=== PATIENT | female | born 1975 | race Caucasian/White ===

== ENCOUNTER 2019-11-10 20:44 | Day surgery (SDC) | payer MEDICARE, OTHER ==
--- NOTE | 2019-11-10 21:03 | EDM.PDOC ---
ED HPI GENERAL MEDICAL PROBLEM - General Chief Complaint: General Stated Complaint: ANAL TOY IN ANUS Time Seen by Provider: 11/10/19 21:01 Source of Information: Reports: Patient History Limitations: Reports: No Limitations - History of Present Illness INITIAL COMMENTS - FREE TEXT/NARRATIVE: Patient is an unfortunate 44-year-old female who presents the emergency department today with complaint of sexual toy in her rectum. The patient reports that she had a 12 inch Jell-O in her rectum and it slipped past her rectum and she has been unable to get it out so she presented to the emergency department today for evaluation melena no abdominal pain, patient is anxious tearful crying but not secondary to pain Rectal Pain Score (Numeric/FACES): 8 - Related Data Allergies Allergy/AdvReac Type Severity Reaction Status Date / Time aspirin Allergy Severe Bleeding Verified 11/10/19 22:04 meperidine [From Demerol] Allergy Severe Seizure Verified 11/10/19 22:05 NSAIDS (Non-Steroidal Allergy Severe Bleeding Verified 11/10/19 22:04 Anti-Inflamma pregabalin [From Lyrica] Allergy Severe Bleeding Verified 11/10/19 22:05 ED ROS GENERAL - Review of Systems Review Of Systems: See Below Constitutional: Denies: Fever, Chills GI/Abdominal: Reports: Other (Foreign body) ED EXAM, GENERAL - Physical Exam Exam: See Below Exam Limited By: No Limitations General Appearance: Alert, WD/WN, Anxious, Moderate Distress Nose: Normal Inspection, Normal Mucosa, No Blood Throat/Mouth: Normal Inspection, Normal Lips, Normal Teeth, Normal Gums, Normal Oropharynx, Normal Voice, No Airway Compromise Head: Atraumatic, Normocephalic Neck: Normal Inspection, Supple, Non-Tender, Full Range of Motion Respiratory/Chest: No Respiratory Distress, Lungs Clear, Normal Breath Sounds, No Accessory Muscle Use, Chest Non-Tender Cardiovascular: Normal Peripheral Pulses, Regular Rate, Rhythm, No Edema, No Gallop, No JVD, No Murmur, No Rub GI/Abdominal: Normal Bowel Sounds, Soft, Non-Tender Rectal (Female) Exam: Other (Foreign body in the vault was unable to retrieve digitally) Extremities: Normal Inspection, Normal Range of Motion, Non-Tender, Normal Capillary Refill, No Pedal Edema Neurological: Alert Skin Exam: Warm, Dry Course - Vital Signs Text/Narrative:: attempted digital retrieval of foreign body without success Last Recorded V/S: Last Vital Signs Temp 98.6 F 11/10/19 20:54 Pulse 125 H 11/10/19 20:54 Resp 16 11/10/19 20:54 BP 150/115 H 11/10/19 20:54 Pulse Ox 96 11/10/19 20:54 - Orders/Labs/Meds Orders: Active Orders 24 hr Category Date Time Status Abdomen 2V AP Flat Upright [CR] Stat Exams 11/10/19 21:00 Taken Meds: Medications Discontinued Medications Generic Name Dose Route Start Last Admin Trade Name Freq PRN Reason Stop Dose Admin Morphine Sulfate 4 mg 11/10/19 21:18 Morphine IVPUSH 11/10/19 21:19 ONETIME ONE Morphine Sulfate 4 mg 11/10/19 21:31 11/10/19 21:33 Morphine IM 11/10/19 21:32 4 mg ONETIME ONE Administration Ondansetron HCl 4 mg 11/10/19 21:18 Zofran IVPUSH 11/10/19 21:19 ONETIME ONE Ondansetron HCl 4 mg 11/10/19 21:31 Zofran IVPUSH 11/10/19 21:32 ONETIME ONE Sodium Chloride 10 ml 11/10/19 21:18 Saline Flush FLUSH ASDIRECTED PRN Keep Vein Open - Re-Assessments/Exams Free Text/Narrative Re-Assessment/Exam: 11/10/19 21:[address] Trejo who will come in to the ER and evaluate the patient Departure - Departure Time of Disposition: 22:27 Disposition: Refer to Observation Clinical Impression: Rectal foreign body Qualifiers: Encounter type: initial encounter Qualified Code(s): T18.5XXA - Foreign body in anus and rectum, initial encounter - Discharge Information Referrals: PCP,Not In Area [Primary Care Provider] - Forms: ED Department Discharge Sepsis Event Note (ED) - Focused Exam Vital Signs: Vital Signs Temp Pulse Resp BP Pulse Ox 11/10/19 20:54 98.6 F 125 H 16 150/115 H 96 - My Orders Last 24 Hours: My Active Orders 11/10/19 21:00 Abdomen 2V AP Flat Upright [CR] Stat - Assessment/Plan Last 24 Hours: My Active Orders 11/10/19 21:00 Abdomen 2V AP Flat Upright [CR] Stat
[2019-11-10] MEDS ORDERED: Ondansetron 4 MG/2 ML SDV IVPUSH ONE ×3 (21:18→23:39)
[2019-11-10] MEDS ORDERED: Morphine 4 MG/ML Syringe IVPUSH ONE (21:18)
[2019-11-10] MEDS ORDERED: Sodium Chloride 0.9% 10 ML Syringe FLUSH PRN (21:18)
[2019-11-10] MEDS ORDERED: Morphine 4 MG/ML Syringe IM ONE (21:31)
--- NOTE | 2019-11-10 22:54 | PCM.HP.2 ---
H&P History of Present Illness - General Date of Service: 11/10/19 Admit Problem/Dx: Admission Diagnosis/Problem Admission Diagnosis/Problem Foreign body in anus and rectum Source of Information: Patient History Limitations: Reports: No Limitations - History of Present Illness Initial Comments - Free Text/Narative: The patient is a 44 y/o female who presents with a rectal foreign object. She was engaged in anal intercourse and had the object come off in her rectum. She did try to remove it at home, but this was not successful. She reports being in pain from the object. She has had some rectal bleeding from the object. In the ED, attempt was made to remove the object, but it could not be grasped by the ED provider. Rectal Pain Score (Numeric/FACES): 8 - Related Data Allergies/Adverse Reactions: Allergies Allergy/AdvReac Type Severity Reaction Status Date / Time aspirin Allergy Severe Bleeding Verified 11/10/19 22:04 meperidine [From Demerol] Allergy Severe Seizure Verified 11/10/19 22:05 NSAIDS (Non-Steroidal Allergy Severe Bleeding Verified 11/10/19 22:04 Anti-Inflamma pregabalin [From Lyrica] Allergy Severe Bleeding Verified 11/10/19 22:05 Past Medical History - Past Surgical History GI Surgical History: Reports: Appendectomy, Cholecystectomy, Lysis of Adhesions, Other (See Below) (multiple abdominal surgeries) Female Surgical History: Reports: Hysterectomy Social & Family History - Family History Cardiac: Denies: ND Oncologic: Reports: None - Tobacco Use Smoking Status *Q: Current Every Day Smoker Years of Tobacco use: 30 Packs/Tins Daily: 1 - Recreational Drug Use Recreational Drug Use: No Drug Use in Last 12 Months: No Recreational Drug Type: Reports: Heroin (last use 8 years ago) H&P Review of Systems - Review of Systems: Review Of Systems: See Below General: Reports: No Symptoms HEENT: Reports: No Symptoms Pulmonary: Reports: No Symptoms Cardiovascular: Reports: No Symptoms Gastrointestinal: Reports: Abdominal Pain Exam - Exam Exam: See Below - Vital Signs Vital Signs: Last Vital Signs Temp 37.0 C 11/10/19 20:54 Pulse 125 H 11/10/19 20:54 Resp 16 11/10/19 20:54 BP 150/115 H 11/10/19 20:54 Pulse Ox 96 11/10/19 20:54 Weight: 56.245 kg - Exam Quality Assessment: No: Supplemental Oxygen General: Alert, Severe Distress HEENT: EOMI Neck: Supple Lungs: Normal Respiratory Effort GI/Abdominal Exam: Soft, Tender (diffusely ) Rectal (Female) Exam: Normal Rectal Tone, Other (anoscopy performed in the ED, but the object could not be visualized) Skin: Warm, Dry, Intact Neurological: Cranial Nerves Intact Psychiatric: Agitated, Other (very tearful and somewhat labile) Sepsis Event Note - Evaluation Sepsis Screening Result: No Definite Risk - Focused Exam Vital Signs: Vital Signs Temp Pulse Resp BP Pulse Ox 11/10/19 20:54 37.0 C 125 H 16 150/115 H 96 Date Exam was Performed: 11/10/19 Time Exam was Performed: 22:56 - Problem List (1) Rectal foreign body SNOMED Code(s): 01624858 ICD Code: T18.5XXA - FOREIGN BODY IN ANUS AND RECTUM, INITIAL ENCOUNTER Status: Acute Current Visit: Yes Qualifiers: Encounter type: initial encounter Qualified Code(s): T18.5XXA - Foreign body in anus and rectum, initial encounter Problem List Initiated/Reviewed/Updated: Yes Orders Last 24hrs: Active Orders 24 hr Category Date Time Status Patient Status [ADT] Routine ADT 11/10/19 22:37 Active Abdomen 2V AP Flat Upright [CR] Stat Exams 11/10/19 21:00 Taken Schedule Procedure [COMM] Stat Oth 11/10/19 22:38 Ordered Assessment/Plan Comment:: 44 y/o female with rectal foreign body. This is painful and needs to be removed. It is unclear if this has caused any intestinal injury. - plan for colonoscopy with retrieval of the foreign object. This will also allow us to evaluate the status of the rectal and colon mucosa. Discussed the risk of perforation. Her written consent was obtained. - NPO - Pt has difficulty with IV placement. Anesthesia to place IV We will determine the need for further treatment based on the procedural findings. Darshana Arredondo MD General surgery - Mortality Measure Prognosis:: Good
--- NOTE | 2019-11-10 23:22 | PCM.PREANE ---
Preanesthetic Assessment - Procedure Proposed Procedure: Colonoscopy with FB extraction - Anesthesia/Transfusion/Family Hx Anesthesia History: Prior Anesthesia Reaction Type of Anesthesia Reaction: Other (see below) (states having prior anesthesia awareness) - Review of Systems General: No Symptoms Pulmonary: No Symptoms Cardiovascular: No Symptoms Gastrointestinal: Abdominal Pain, Other (some rectal bleeding from foreign body) Neurological: Weakness (left side weakness, balance problems), Other Other: Reports: Thyroid Problems, Anxiety - Physical Assessment NPO Status Date: 11/10/19 Vital Signs: Last Vital Signs Temp 98.6 F 11/10/19 20:54 Pulse 125 H 11/10/19 20:54 Resp 16 11/10/19 20:54 BP 150/115 H 11/10/19 20:54 Pulse Ox 96 11/10/19 20:54 Height: 1.57 m Weight: 56.245 kg ASA Class: 2E Mental Status: Alert & Oriented x3 Airway Class: Mallampati = 1 Dentition: Reports: [place](s), Bridge, Missing Tooth/Teeth (missing bilateral molars lower jaw) Thyro-Mental Finger Breadths: 3 Mouth Opening Finger Breadths: 3 ROM/Head Extension: Full Lungs: Clear to Auscultation, Normal Respiratory Effort Cardiovascular: Regular Rate, Regular Rhythm - Allergies Allergies/Adverse Reactions: Allergies Allergy/AdvReac Type Severity Reaction Status Date / Time aspirin Allergy Severe Bleeding Verified 11/10/19 22:04 meperidine [From Demerol] Allergy Severe Seizure Verified 11/10/19 22:05 NSAIDS (Non-Steroidal Allergy Severe Bleeding Verified 11/10/19 22:04 Anti-Inflamma pregabalin [From Lyrica] Allergy Severe Bleeding Verified 11/10/19 22:05 - Acknowledgements Anesthesia Type Planned: General Anesthesia Pt an Appropriate Candidate for the Planned Anesthesia: Yes Alternatives and Risks of Anesthesia Discussed w Pt/Guardian: Yes Pt/Guardian Understands and Agrees with Anesthesia Plan: Yes PreAnesthesia Questionnaire Neurological History: Reports: CVA (hemorrhagic stroke 2012, left side weakness noted, lt foot weakness, partial lt arm weakness, no facial asymmetry noted) Other Endocrine/Metabolic History: states having unstable thyroid function - Past Surgical History GI Surgical History: Reports: Appendectomy, Cholecystectomy, Lysis of Adhesions, Other (See Below) (multiple abdominal surgeries) Female Surgical History: Reports: Hysterectomy - SUBSTANCE USE Smoking Status *Q: Current Every Day Smoker Tobacco Use Within Last Twelve Months: Cigarettes Recreational Drug Use History: No Recreational Drug Type: Reports: Heroin (last use 8 years ago) - CURRENT (IN HOUSE) MEDS Current Meds: Current Medications Discontinued Medications Morphine Sulfate (Morphine) 4 mg IVPUSH ONETIME ONE Stop: 11/10/19 21:19 Morphine Sulfate (Morphine) 4 mg IM ONETIME ONE Stop: 11/10/19 21:32 Last Admin: 11/10/19 21:33 Dose: 4 mg Documented by: Ondansetron HCl (Zofran) 4 mg IVPUSH ONETIME ONE Stop: 11/10/19 21:19 Ondansetron HCl (Zofran) 4 mg IVPUSH ONETIME ONE Stop: 11/10/19 21:32 Sodium Chloride (Saline Flush) 10 ml FLUSH ASDIRECTED PRN PRN Reason: Keep Vein Open
[2019-11-10] MEDS ORDERED: Propofol 200 MG/20 ML SDV ONE (23:37)
[2019-11-10] MEDS ORDERED: fentaNYL 100 MCG/2 ML SDV ONE (23:38)
[2019-11-10] MEDS ORDERED: Midazolam 1 MG/ML 2 ML SDV ONE (23:38)
[2019-11-10] MEDS ORDERED: Lidocaine 1% 4 ML ONE (23:39)
[2019-11-10] MEDS ORDERED: Succinylcholine/Sod PF 100 MG/5 ML SYRINGE IV ONE (23:40)
[2019-11-10] MEDS ORDERED: Lactated Ringers 1,000 ML ONE (23:55)
[2019-11-11] MEDS ORDERED: fentaNYL 100 MCG/2 ML SDV IVPUSH PRN (00:01)
[2019-11-11] MEDS ORDERED: HYDROmorphone 0.5 MG/0.5 ML Syringe IVPUSH PRN (00:01)
--- NOTE | 2019-11-11 00:15 | PCM.OPNOTE ---
- General Post-Op/Procedure Note Date of Surgery/Procedure: 11/10/19 Operative Procedure(s): Partial colonoscopy with retrieval of foreign body from the rectum Findings: large foreign body in the rectum, no evidence of perforation Pre Op Diagnosis: rectal foreign body Post-Op Diagnosis: same Anesthesia Technique: General ET Tube Primary Surgeon: Darshana Arredondo Anesthesia Provider: Chong Leal Pathology: none Fluid Replacement, Intraop: 1,000 Output, Urine Amount: 0 EBL in mLs: 0 Complications: none apparent Condition: Good
--- NOTE | 2019-11-11 00:23 | PCM.PRNOTE ---
- Free Text/Narrative Note: Operative Report Date of Surgery/Procedure: November 10, 2019 Procedure: partial colonoscopy with retrieval of foreign body Pre Op Diagnosis: rectal foreign body Post-Op Diagnosis: same Surgeon: Darshana Arredondo MD Anesthesia Technique: MAC Anesthesia Provider: Chong Leal CRNA IV Fluid Replacement, Intraop: 1000cc Output, Urine Amount: 0cc EBL : 0cc Findings: large foreign body in the rectum, no evidence of perforation Specimens: none Indication: The patient is a 44 year-old lady who presented to the emergency department with a foreign body in the rectum. Anoscopy was attempted in the emergency department, but this was not successful. We discussed the procedure of a colonoscopy with retrieval of the foreign body. Risk of perforation was discussed, the patient understood and wished to proceed. Written and consent was obtained Description of the procedure: The patient was brought to the endoscopy suite. She had successful induction of general anesthesia and was intubated without difficulty. She was then placed in the left lateral decubitus position. The scope was placed into the rectum which was insufflated. A hexagonal snare was then attempted to grab the object, but we could not get sufficient purchase. A tripod device was then used, but this was not successful. Lower abdominal pressure was then applied and this brought the object down close to the anal orifice. It was then grasped and removed. The colonoscope was then advanced to approximately 45cm and the tissue examined. There was no evidence of perforation. There were petechiae in the rectal mucosa consistent with the prior attempts at retrieval. In the rectum, the scope was retroflexed and some minor abrasions were noted in the anoderm. The scope was placed back in the lumen and the excess air was aspirated. The patient tolerated the procedure well. Complications: none apparent Condition: Good, transported to PACU in stable condition Darshana Arredondo MD General Surgery
--- NOTE | 2019-11-11 00:27 | PCM.POSTAN ---
POST ANESTHESIA ASSESSMENT - MENTAL STATUS Mental Status: Alert, Oriented - VITAL SIGNS Vital Signs: Last Vital Signs Temp 98.1 F 11/11/19 00:17 Pulse 99 11/11/19 00:17 Resp 19 11/11/19 00:17 BP 112/77 11/11/19 00:17 Pulse Ox 97 11/11/19 00:17 - RESPIRATORY Respiratory Status: Respiratory Rate WNL, Airway Patent, O2 Saturation Stable, Supplemental Oxygen - CARDIOVASCULAR CV Status: Blood Pressure Stable, Elevated Pulse Rate - GASTROINTESTINAL GI Status: No Symptoms - PAIN Pain Score: 5 - POST OP HYDRATION Hydration Status: Adequate & Stable
--- NOTE | 2019-11-11 00:46 | PCM48HPAN ---
Post Anesthesia Note - EVALUATION WITHIN 48HRS OF ANESTHETIC Vital Signs in Normal Range: Yes Patient Participated in Evaluation: Yes Respiratory Function Stable: Yes Airway Patent: Yes Cardiovascular Function Stable: Yes Hydration Status Stable: Yes Pain Control Satisfactory: Yes Nausea and Vomiting Control Satisfactory: Yes Mental Status Recovered: Yes Vital Signs: Last Vital Signs Temp 98.6 F 11/11/19 00:30 Pulse 105 H 11/11/19 00:30 Resp 21 H 11/11/19 00:30 BP 105/70 11/11/19 00:30 Pulse Ox 100 11/11/19 00:36 - COMMENTS/OBSERVATIONS Free Text/Narrative:: No anesthesia complications noted. The patient will be discharged home tonight.
--- NOTE | 2019-11-11 11:06 | CR ---
Abdomen: Upright and supine views of the abdomen were obtained. Comparison: No previous abdominal imaging is available. Previous lumbar spine surgery is noted. Surgical clips are noted from prior cholecystectomy. Calcifications are noted within the pelvis compatible with phleboliths. Bowel gas pattern appears within normal limits. No free air is seen. Large foreign object projects within the sigmoid colon. Impression: 1. Large foreign object rejects within the sigmoid colon. 2. Other findings which are nonacute. Diagnostic code #3 This report was dictated in MDT
== END 2019-11-11 01:28 | disposition home or self-care (01) ==
LOC: JD.ED 20:44 → JD.SDS 22:38
PROVIDERS: ATTEND Surgery
DX: T18.5XXA Foreign body in anus and rectum, initial encounter (principal); E07.9 Disorder of thyroid, unspecified; F17.210 Nicotine dependence, cigarettes, uncomplicated; F41.9 Anxiety disorder, unspecified; Z88.8 Allergy status to other drugs, medicaments and biological substances; Z86.73 Personal history of transient ischemic attack (TIA), and cerebral infarction without residual deficits; Z11.59 Encounter for screening for other viral diseases; Z90.89 Acquired absence of other organs; Z90.49 Acquired absence of other specified parts of digestive tract
CPT/HCPCS: 45332; 74019; 96372; 96374; 99285; J0330; J2001; J2250; J2270; J2370; J2405; J2704; J7120; U0002; 00811; J3010